=== PATIENT | female | born 1965 | race Caucasian/White ===

== ENCOUNTER 2017-12-23 07:16 | Day surgery (SDC) | payer MEDICARE, OTHER ==
[~2017-12-23 07:16] MED LIST: METOCLOPRAMIDE 10 MG INJ; PROPOFOL 200 MG INJ
[2017-12-23] MEDS ORDERED: FENTAnyl 50 MCG/ML VIAL (07:59)
[2017-12-23] MEDS ORDERED: MIDAZOLAM 1 MG/ML 2 ML INJ (08:03)
[2017-12-23] MEDS ORDERED: DEXTROSE 5%-0.9% NACL 1,000 ML IV (08:30)
[2017-12-23] MEDS: CEFAZOLIN 2 GM/50 ML (PMX) 50 ML IVPB (09:52)
[2017-12-23] MEDS ORDERED: LIDOCAINE 100 MG SYRINGE (10:12)
[2017-12-23] MEDS ORDERED: ONDANSETRON 4 MG INJ (10:12)
[2017-12-23] MEDS ORDERED: CEFAZOLIN 1 GM INJ (10:12)
[2017-12-23] MEDS ORDERED: PHENYLephrine (100 MCG/ML) 5ML SYG (10:13)
[2017-12-23] MEDS ORDERED: HYDROmorphONE (0.2 MG/ML) 10ML SYG IV ×2 (10:47→11:00)
[2017-12-23] MEDS: HYDROmorphONE (0.2 MG/ML) 10ML SYG IV ×4 (10:50→11:20)
[2017-12-23] MEDS ORDERED: KETOROLAC 15 MG INJ IV (11:00)
[2017-12-23] MEDS ORDERED: FENTAnyl 50 MCG/ML VIAL IV ×2 (11:00)
[2017-12-23] MEDS ORDERED: hydrALAzine 20 MG INJ IV (11:00)
[2017-12-23] MEDS ORDERED: LABETALOL HCL 20MG INJ IV (11:00)
[2017-12-23] MEDS ORDERED: IPRATROPIUM (NEB) 0.5 MG/2.5 ML AMP HHN (11:00)
[2017-12-23] MEDS ORDERED: ONDANSETRON 4 MG INJ IV (11:00)
[2017-12-23] MEDS ORDERED: DIPHENHYDRAMINE 50 MG INJ IV (11:00)
[2017-12-23] MEDS: METOCLOPRAMIDE 10 MG INJ IV (11:03)
[2017-12-23] MEDS: MEPERIDINE 25 MG INJ IV (11:21)
[2017-12-23] MEDS: KETOROLAC 30 MG INJ IV (12:12)
== END 2017-12-23 12:56 | disposition home or self-care (01) ==
LOC: SDS 07:16
DX: N92.1 Excessive and frequent menstruation with irregular cycle (principal); D25.9 Leiomyoma of uterus, unspecified; D50.9 Iron deficiency anemia, unspecified
CPT/HCPCS: 58353; 84703; 88305